=== PATIENT | male | born 1995 | race Caucasian/White ===

== ENCOUNTER 2017-07-18 13:24 | Emergency (ER) | payer OTHER, BC ==
--- NOTE | 2017-07-18 13:54 | ERNOTE ---
[facility] Date of Service: 07/18/17 Presenting Symptoms: other - earache Time Seen by Provider: 07/18/17 13:37 Source: patient Exam Limitations: no limitations - Immun/Allergies/Home Medications Immunizations: IMMUNIZATION HX History of Influenza Vaccine No Allergies/Adverse Reactions: Allergies Allergy/AdvReac Type Severity Reaction Status Date / Time amoxicillin [From Augmentin] Allergy Verified 07/18/17 13:37 cefaclor [From Ceclor] Allergy Verified 07/18/17 13:37 clavulanic acid Allergy Verified 07/18/17 13:37 [From Augmentin] Home Medications: HOME MEDICATIONS Naproxen [Naprosyn] 375 mg PO BID #10 tab 07/18/17 [Last Taken Unknown] Ofloxacin [Floxin Otic] 10 drop RIGHT EAR BID #5 ml 07/18/17 [Last Taken Unknown ] - History of Present Illness Narrative: Patient presents with right ear pain for 3 days. He had this 2 years ago and had ear drops that helped. pain with touching the ear or laying on it. no fever. No other CP, SOB, abdominal pain, vomiting or associated Sx. No sore throat. Pain can be severe with moving the ear. Has not seen anyone else for this. Can't hear out of that ear. The old drops he had taken are . Severity: Present: moderate ENT Location: Present: ear (R) Modifying Factors - Improves: Reports: rest Modifying Factors - Worsens: Reports: other - touching the ear Associated Symptoms - ENT: Denies: fever, voice change, sore throat, headache Prior Treament: Denies: recently seen Review of Systems - Review of Systems Constitutional: Absent: fever EYE: Absent: eye discharge ENT: Present: ear pain. Absent: sore throat, throat swelling Respiratory: Absent: shortness of breath Cardiology: Absent: chest pain Skin: Absent: rash Neurological: Absent: weakness - Patient's Past Medical History Patient History - Medical: No pertinent hx Patient History - Cardiac/Respiratory: No pertinent hx Patient History - Cancer: No Hx of Cancer Patient History - Surgical Procedures: No surgical history Patient History - Other: None - Social History Living Situations: home Psych History: No pertinent hx Alcohol Use: none Drug Use: none - Immunizations History of Influenza Vaccine: No Physical Exam - Physical Exam General Appearance: Present: alert, no apparent distress Head Exam: Present: normal inspection, no evidence of injury Eye Exam: Normal inspection: bilateral, PERRL: bilateral Ears, Nose, Throat: Present: normal pharynx, other - Tenderness with palpation tragus right. OE on the right. No FB seen. Difficult exam but no clear TM perforation. No evidence of mastoiditis or malignant otitis externa. 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 Vital Signs: Vital Signs 07/18/17 13:31 Temperature 37.1 C Pulse Rate 98 Respiratory 12 Rate Blood Pressure 135/72 O2 Sat by Pulse 100 Oximetry - Progress/Reassessment Chief Complaint: Earache Progress Note-Subjective: 07/18/17 13:49 Will RX ear drops for OE. Off work until Sx resolved. Antiinflammatories. No evidence of sepsis, toxicity, mastoiditis or OE. Departure Clinical Impression: Otitis externa - Departure Disposition: Home self-care Condition: Stable Instructions: Otitis Externa, [id number] Additional Instructions: Rest. Fluids. Follow-up with your doctor Friday for a re-check. Return for fever or if your condition worsens or changes in any way. Prescriptions: Naproxen [Naprosyn] 375 mg PO BID #10 tab Ofloxacin [Floxin Otic] 10 drop RIGHT EAR BID #5 ml
[2017-07-18 15:49] VITALS: BP 124/70
== END 2017-07-18 14:10 | disposition home or self-care (01) ==
LOC: ER 13:24
DX: H60.91 Unspecified otitis externa, right ear (principal)